=== PATIENT | male | born 1945 | race Caucasian/White ===

== ENCOUNTER 2017-01-03 23:02 | Inpatient (IN) | payer MEDICARE, OTHER ==
[2017-01-03] MEDS ORDERED: MORPHINE SULFATE 2 MG/ML SYRINGE IVP ONE (23:05)
[2017-01-03] MEDS ORDERED: KETOROLAC 60 MG/2 ML VIAL IVP STA (23:05)
[2017-01-03] MEDS ORDERED: ALBUTEROL NEBULIZED 2.5 MG/3 ML INHALATION STA (23:06)
[2017-01-03] MEDS ORDERED: IPRATROPIUM-ALBUTEROL 3 ML NEB INHALATION STA (23:06)
[2017-01-03 23:15] LABS: Glucose,Whole Blood 133 mg/dL (75-99)
--- NOTE | 2017-01-03 23:22 | ED ---
General Adult HPI - General Chief complaint: Upper Respiratory Infection Stated complaint: Hypoxia Time Seen by Provider: 01/03/17 23:05 Source: EMS, RN notes reviewed Mode of arrival: EMS Limitations: no limitations - History of Present Illness Initial comments: This is a 71-year-old male who comes to us from [facility] where they diagnosed him with an exacerbation of COPD and pneumonia patient had a CAT scan and lab work done at that facility and was sent to us because he needed BiPAP to keep him in the 90s. Patient states she feels considerably better than when he first came [facility]. Patient has received antibiotics and steroids and breathing treatments since coming to the hospital. Patient denies any recent fever or chills. Patient denies any chest pain. Patient denies any abdominal pain patient denies nausea vomiting diarrhea. Patient presented patient denies numbness weakness. Patient denies any lightheadedness dizziness or near syncopal episode. - Related Data Home Medications Medication Instructions Recorded Confirmed Albuterol Inhaler [Ventolin Hfa 1 - 2 puff INHALATION RT-QID PRN 01/03/17 Inhaler] Budesonide-Formot 160-4.5 Mcg 2 puff INHALATION RT-BID 01/03/17 01/03/17 [Symbicort 160-4.5 Mcg Inhaler] Gabapentin [Neurontin] 600 mg PO TID 01/03/17 01/03/17 Hydrocodone/Acetaminophen [[place] 1 tab PO TID PRN 01/03/17 01/03/17 10-325 Tablet] Insulin NPH Hum/Reg Insulin Hm 60 unit SQ AC-BID 01/03/17 01/03/17 [Humulin 70-30 Vial] Levofloxacin [Levaquin] 500 mg PO DAILY 01/03/17 01/03/17 Lisinopril [Zestril] 2.5 mg PO DAILY 01/03/17 01/03/17 Omeprazole [PriLOSEC] 20 mg PO DAILY PRN 01/03/17 01/03/17 Tiotropium 18 Mcg/Puff [Spiriva] 1 cap INHALATION RT-DAILY 01/03/17 01/03/17 Vits A,C,E/Lutein/Minerals 1 tab PO DAILY 01/03/17 01/03/17 [Ocuvite with Lutein Tablet] amLODIPine [Norvasc] 10 mg PO DAILY 01/03/17 01/03/17 Allergies Allergy/AdvReac Type Severity Reaction Status Date / Time No Known Allergies Allergy Verified 01/03/17 23:33 Review of Systems ROS Statement: Those systems with pertinent positive or pertinent negative responses have been documented in the HPI. ROS Other: All systems not noted in ROS Statement are negative. Past Medical History Past Medical History: COPD, Diabetes Mellitus, Hypertension, Sleep Apnea/CPAP/ BIPAP Additional Past Medical History / Comment(s): Pancrentitis History of Any Multi-Drug Resistant Organisms: None Reported Past Surgical History: Cholecystectomy Additional Past Surgical History / Comment(s): Trach Past Psychological History: No Psychological Hx Reported Smoking Status: Former smoker Past Alcohol Use History: Occasional Past Drug Use History: None Reported General Exam - General Exam Comments Initial Comments: GENERAL: Patient is well-developed and well-nourished. Patient is nontoxic and well- hydrated and is in no acute distress. ENT: Neck is soft and supple. No significant lymphadenopathy is noted. Oropharynx is clear. Moist mucous membranes. Neck has full range of motion without eliciting any pain. EYES: The sclera were anicteric and conjunctiva were pink and moist. Extraocular movements were intact and pupils were equal round and reactive to light. Eyelids were unremarkable. PULMONARY: Patient has diminished breath sounds throughout. CARDIOVASCULAR: There is a regular rate and rhythm without any murmurs gallops or rubs. ABDOMEN: Soft and nontender with normal bowel sounds. No palpable organomegaly was noted. There is no palpable pulsatile mass. SKIN: Skin is clear with no lesions or rashes and otherwise unremarkable. NEUROLOGIC: Patient is alert and oriented x3. Cranial nerves II through XII are grossly intact. Motor and sensory are also intact. Normal speech, volume and content. Symmetrical smile. MUSCULOSKELETAL: Normal extremities with adequate strength and full range of motion. No lower extremity swelling or edema. No calf tenderness. LYMPHATICS: No significant lymphadenopathy is noted PSYCHIATRIC: Normal psychiatric evaluation. Normal interpersonal interactions appears functionally intact in deals appropriately with others. No signs of depression. No signs of anxiety. Limitations: no limitations Course Vital Signs 01/03/17 01/03/17 01/03/17 23:04 23:17 23:32 Temperature 98.6 F Pulse Rate 86 74 84 Respiratory 22 Rate Blood Pressure 141/76 O2 Sat by Pulse 94 L Oximetry Medical Decision Making - Medical Decision Making EKG shows normal sinus rhythm at 86 bpm VT interval is 134 QRS is 86 QT interval 392 QTC is 469. Patient's EKG shows no ST segment elevation or depression I reviewed the chest CT and x-ray it did show a lingular pneumonia which is very small. I spoke with Dr. Be and admitted the patient and wrote admitting orders. - Lab Data Lab Results 01/03/17 Range/Units 23:12 POC Glucose (mg/dL) 133 H (75-99) mg/dL POC Glu Director Case Management ID Ignacia Dasilva Disposition Clinical Impression: COPD with acute exacerbation, Pneumonia Disposition: ADMITTED IP TO THIS HOSP Referrals: Nonstaff,Physician [Primary Care Provider] - 1-2 days Time of Disposition: 00:00
[2017-01-04] MEDS ORDERED: AZITHROMYCIN 500 MG in SODIUM CHLORIDE 0.9% 250 ML IVPB STA (00:02)
[2017-01-04 00:40] LABS: Glucose,Whole Blood 160 mg/dL (75-99)
[2017-01-04 00:57] VITALS: BMI 43.9
[2017-01-04] MEDS: methylPREDNISolone SOD SUCCI 125 MG/2 ML VIAL IV SCH ×4 (01:18→18:16)
[2017-01-04 06:11] LABS: Glucose,Whole Blood 191 mg/dL (75-99)
[2017-01-04] MEDS ORDERED: PANTOPRAZOLE 40 MG TABLET PO PRN (09:26)
[2017-01-04] MEDS: HYDROcodone/APAP 10-325MG 1 EACH TAB PO PRN ×2 (10:04→20:14)
[2017-01-04] MEDS: GABAPENTIN 300 MG CAP PO SCH ×3 (10:06→22:09)
[2017-01-04] MEDS: LISINOPRIL 2.5 MG TAB PO SCH (10:06)
[2017-01-04] MEDS: amLODIPine 10 MG TAB PO SCH (10:06)
[2017-01-04] MEDS: HYDROmorphone 1 MG/ML 1 ML SYRINGE IVP PRN ×2 (10:10→16:39)
[2017-01-04 10:35] LABS: Glucose,Whole Blood 281 mg/dL (75-99)
[2017-01-04] MEDS: INSULIN LISPRO (humaLOG) 300 UNIT/3 ML VIAL SQ SCH ×4 (11:03→22:07)
[2017-01-04] MEDS: INSULIN NPH/REG INSULIN 70/30 300 UNIT/3 ML VIAL SQ SCH ×2 (11:04→18:17)
[2017-01-04 11:42] LABS: Hemoglobin A1C 6.6 % (4.2-6.1)
[2017-01-04 11:43] LABS: Glucose,Whole Blood 219 mg/dL (75-99)
[2017-01-04] MEDS: ALBUTEROL NEBULIZED 2.5 MG/3 ML INHALATION PRN ×2 (11:45→19:43)
[2017-01-04] MEDS: ENOXAPARIN 40 MG/0.4 ML SYRINGE SQ SCH (13:03)
--- NOTE | 2017-01-04 13:33 | P.CNPUL ---
History of Present Illness Consult date: 01/04/17 Reason for consult: dyspnea, COPD History of present illness: This is a 71-year-old male patient, morbidly obese, known history of COPD and obstructive sleep apnea, who presented initially to [facility] because of increased cough. He started by having cold-like symptoms and symptoms of URI approximately 7-10 days ago and subsequently started having increased cough and congestion and he was coughing so hard that yesterday he pulled a anterior chest wall muscle and says that his been having excess amount of pain around the right lateral chest wall area. He denies having any fever or chills. He denies having any significant sputum production. No hemoptysis. No pleurisy. The chest wall was sore to touch and cough and. The patient is an ex-smoker. He quit smoking back in 2009. He is maintained on a combination of Spiriva and Symbicort. The patient has also been maintained on BiPAP at a pressure of 18/10 cm of water utilizing a full face mask. He is feeling slightly better compared to yesterday. He still short of breath with limited amount of activity and occasionally at rest. His blood gases that were forwarded from [facility] showed a component of hypercapnic respiratory failure acute on top of chronic with a pH of 7.34 with a pCO2 of 53 and pO2 of 71 and this was done while the patient on 43 of oxygen nasal cannula. Also, CT angios the chest was done that showed no evidence of any pulmonary embolism. There was some limited infiltration at the level of the lingula. No pleural effusion. Noted fracture. No pneumothorax. Blood work was also reviewed. The patient's creatinine was at 1.4. Review of Systems All systems: negative Constitutional: Denies chills, Denies fever Eyes: denies blurred vision, denies pain Ears, nose, mouth and throat: Denies headache, Denies sore throat Cardiovascular: Denies chest pain, Denies shortness of breath Respiratory: Denies cough Gastrointestinal: Denies abdominal pain, Denies diarrhea, Denies nausea, Denies vomiting Musculoskeletal: Denies myalgias Integumentary: Denies pruritus, Denies rash Neurological: Denies numbness, Denies weakness Psychiatric: Denies anxiety, Denies depression Endocrine: Denies fatigue, Denies weight change Past Medical History Past Medical History: COPD, Diabetes Mellitus, Hypertension, Renal Disease, Sleep Apnea/CPAP/BIPAP Additional Past Medical History / Comment(s): Obesity, DM type 2 , HTN, periferal neuropathy, chronic back pain and history of gallstone Pancreatitis that was complicated by sep[sis and prolonged VDRF and renal failure from which the patient recovered History of Any Multi-Drug Resistant Organisms: None Reported Past Surgical History: Cholecystectomy Additional Past Surgical History / Comment(s): Tracheostomy Past Anesthesia/Blood Transfusion Reactions: No Reported Reaction Past Psychological History: Depression Smoking Status: Former smoker (quit smoking in 2009 and he has 50pyear smoking history) Past Alcohol Use History: Occasional Past Drug Use History: None Reported - Past Family History Father Family Medical History: Cancer Additional Family Medical History / Comment(s): lung cancer Mother Family Medical History: No Reported History Medications and Allergies Home Medications Medication Instructions Recorded Confirmed Type Albuterol Inhaler [Ventolin Hfa 1 - 2 puff INHALATION RT-QID PRN 01/03/17 History Inhaler] Budesonide-Formot 160-4.5 Mcg 2 puff INHALATION RT-BID 01/03/17 01/03/17 History [Symbicort 160-4.5 Mcg Inhaler] Gabapentin [Neurontin] 600 mg PO TID 01/03/17 01/03/17 History Hydrocodone/Acetaminophen [[place] 1 tab PO TID PRN 01/03/17 01/03/17 History 10-325 Tablet] Insulin NPH Hum/Reg Insulin Hm 60 unit SQ AC-BID 01/03/17 01/03/17 History [Humulin 70-30 Vial] Lisinopril [Zestril] 2.5 mg PO DAILY 01/03/17 01/03/17 History Omeprazole [PriLOSEC] 20 mg PO DAILY PRN 01/03/17 01/03/17 History Tiotropium 18 Mcg/Puff [Spiriva] 1 cap INHALATION RT-DAILY 01/03/17 01/03/17 History Vits A,C,E/Lutein/Minerals 1 tab PO DAILY 01/03/17 01/03/17 History [Ocuvite with Lutein Tablet] amLODIPine [Norvasc] 10 mg PO DAILY 01/03/17 01/03/17 History Allergies Allergy/AdvReac Type Severity Reaction Status Date / Time No Known Allergies Allergy Verified 01/03/17 23:33 Physical Exam Vitals: Vital Signs Temp Pulse Pulse Resp BP BP Pulse Ox 01/04/17 11:46 80 01/04/17 08:50 97.2 F L 78 18 124/63 91 L 01/04/17 04:00 97.8 F 92 18 135/79 92 L 01/04/17 00:47 97.9 F 88 18 135/72 95 01/04/17 00:28 98.4 F 01/04/17 00:25 97.9 F 88 18 135/72 95 01/04/17 00:04 83 24 164/107 93 L 01/03/17 23:32 84 01/03/17 23:17 74 01/03/17 23:04 98.6 F 86 22 141/76 94 L Intake and Output 01/03/17 01/04/17 01/04/17 22:59 06:59 14:59 Intake Total 240 Output Total 350 Balance -350 240 Intake: Oral 240 Output: Urine 350 Other: # Voids 1 Weight 138.8 kg Morbidly obese, calm and comfortable a mild degree of respiratory distress.Head exam was generally normal. There was no scleral icterus or corneal arcus. Mucous membranes were moist. Neck is short and supple and there is significant crowding of the posterior pharynx and the patient has a Mallampati class IV. Lung sounds are diminished bilaterally along with marked image breath sounds in the lung bases and diffuse expiratory wheezes throughout the lung quiles. Heart sounds are distant, positive S1-S2. No significant murmurs appreciated. Abdominal exam revealed normal bowel sounds. The abdomen was soft, non-tender, and without masses, organomegaly, or appreciable enlargement of the abdominal aorta. the patient is morbidly obese and orders cannot be accurately palpated.Examination of the extremities revealed easily palpable radial, femoral and pedal pulses. There was no cyanosis, clubbing or edema. Results - Laboratory Findings Abnormal lab findings: Abnormal Labs 01/03/17 01/04/17 01/04/17 23:12 00:38 05:31 POC Glucose (mg/dL) 133 H 160 H Hemoglobin A1c 6.6 H 01/04/17 01/04/17 01/04/17 06:10 10:33 11:41 POC Glucose (mg/dL) 191 H 281 H 219 H Hemoglobin A1c Assessment and Plan Plan: Assessment 1 acute COPD exacerbation with secondary shortness of breath 2 acute muscular skeletal chest wall pain secondary to aggressive cough and. CAT scan of the chest shows evidence of any rib fractures or pulmonary embolism. 3 chronic hypercapnic respiratory failure with acute respiratory acidosis based on the blood gases 4 morbid obesity 5 obstructive sleep apnea maintained on a BiPAP pressure of 18/10 cm of water 6 hypertension 7 diabetes mellitus 8 renal failure, chronic creatinine is at 1.4 9 remote history of gallstone pancreatitis complicated by sepsis and prolonged ventilator dependent respiratory failure. Plan Agree on the current treatment. The patient has been placed on DuoNeb the last treatment [id number]. Resume Symbicort and Spiriva. Cover the patient with a combination of Rocephin and Zithromax. Provide Dilaudid for pain control. CAT scan of the chest was reviewed. Heparin subcu for DVT prophylaxis. Continue BiPAP therapy. We'll continue to follow.
[2017-01-04] MEDS: IPRATROPIUM-ALBUTEROL 3 ML NEB INHALATION PRN (16:28)
[2017-01-04 16:39] LABS: Glucose,Whole Blood 146 mg/dL (75-99)
[2017-01-04] MEDS: CYCLOBENZAPRINE 10 MG TAB PO PRN (16:45)
[2017-01-04] MEDS: SYMBICORT 160-4.5 MCG INHALER INHALATION SCH (19:43)
[2017-01-04 20:55] LABS: Glucose,Whole Blood 274 mg/dL (75-99)
[2017-01-04 22:16] LABS: Glucose,Whole Blood 265 mg/dL (75-99)
--- NOTE | 2017-01-04 22:42 | HP ---
DATE OF ADMISSION: 01/04/2017 CHIEF COMPLAINT: Patient transferred from [facility] for difficulty in breathing. HISTORY OF PRESENT ILLNESS: Mr. Altamirano is a 71-year-old male with a past medical history of chronic obstructive pulmonary disease, obstructive sleep apnea, morbid obesity who was transferred from [facility] ER for difficulty in breathing. The patient states that he started to have upper respiratory tract symptoms for the past one week and he has been coughing and it got so worse that when he started to cough he thought he pulled a muscle in his chest wall and since then it has been hurting whenever he takes a deep breath so went to the hospital for further evaluation. The patient did get a CT angiogram of the chest, which showed no evidence of PE. Patient is an ex-smoker and quit smoking since 2009. He has obstructive sleep apnea and he is on CPAP at night. As there was impending danger of respiratory failure, he has been transferred to for further evaluation. The patient has been on high flow oxygen and his ABGs are within normal limits at the time of admission to the ER. He was given breathing treatments and steroids after which his respiration status did improve. Currently the patient is sitting comfortably in the bed on 4 liters of oxygen via nasal cannula, appears to be no acute respiratory distress. His only complaint is that he has pain when taking in a deep breath on the right side of his chest under his ribs. REVIEW OF SYSTEMS: CONSTITUTIONAL: Denies having any fever, chills or rigors. ENT: Patient had upper tract symptoms with cold and cough-like nasal drainage. CARDIOVASCULAR: No chest pain. No difficulty in breathing. RESPIRATORY: As per HPI. GI: No abdominal pain, nausea, vomiting, or diarrhea. MUSCULOSKELETAL: No myalgias. SKIN: No rash. NEUROLOGICAL: The patient denies having any headaches or blurring of her vision or slurring of speech. PSYCHIATRIC: Denies having any anxiety or depression. ENDOCRINE: No heat or cold intolerance or weight changes recently. Past medical history significant for hypertension, diabetes mellitus, sleep apnea, COPD, morbid obesity. The patient had a complicated in the hospital stay in 2009 four almost 2 months for gallstone pancreatitis that was complicated by sepsis. PAST SURGICAL HISTORY: Cholecystectomy and tracheostomy. SOCIAL HISTORY: Former smoker, quit in 2009/50 pack-years of smoking. Occasional alcohol. No history of intravenous drug abuse. FAMILY HISTORY: Positive for lung cancer in his father. Allergies: No known drug allergies. Patient's home medications: 1. Albuterol 1 to 2 puffs p.r.n. for shortness of breath. 2. Amlodipine 10 mg p.o. daily. 3. Spiriva 1 capsule p.o. daily. 4. Lisinopril 2.5 mg p.o. daily. 5. Gabapentin 600 mg p.o. 3 times a day. 6. Insulin 70/30 60 units twice a day. 7. Symbicort 160/4.5, 2 puffs b.i.d. 8. [place] 10/325 1 tablet 3 times a day p.r.n. for pain. 9. Omeprazole 25 mg p.o. daily p.r.n. for GERD like symptoms. 10. Multivitamin 1 p.o. daily. At the time of exam patient's vitals: Temperature 97.6, heart rate 78, respiratory rate 18, blood pressure 124/63, saturating at 91% on 6 liters of nasal cannula. GENERAL EXAMINATION: Patient is morbidly obese, sitting up in his bed, appears to be no acute distress. HEAD: Atraumatic, normocephalic. EYES: Pupils, round, and reactive to light. NECK: Short. HEART: S1, S2 heard. No additional sounds. LUNGS: Decreased breath sounds in all lung quiles. No audible wheezes or crackles. ABDOMEN: Soft, nontender. Organomegaly difficult to appreciate due to huge body habitus. Lower extremities slight pitting edema bilaterally, pulses felt. MUSCULOSKELETAL: No joint swellings or deformities. SKIN: No rashes. Patient does have ( ) on the forehead in the midline. 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 No focal neurological deficits. Patient's labs: Hemoglobin A1c of 6.6. Labs from [facility] will be reviewed. The patient did have CT Angio of his chest which was negative for PE at [facility]. ASSESSMENT AND PLAN: 1. Acute chronic obstructive pulmonary disease exacerbation most likely secondary to tracheobronchitis. The patient has been started on ceftriaxone and Zithromax which will be continued. 2. Chest wall pain, most likely musculoskeletal in origin. We will give a trial of Flexeril. CT angiogram no evidence of rib fractures or pulmonary embolism. 3. Acute on chronic hypercapnic respiratory failure. 4. Morbid obesity. 5. Hypertension. 6. Type 2 diabetes mellitus. 7. Morbid obesity with BMI of 43.9. 8. Hypertension. 9. Elevated creatinine unclear whether is acute or chronic kidney injury. 10. Wart on the forehead. 11. Complicated hospital course in 2009 with gallstone pancreatitis that was complicated by VDRF and prolonged recovery after that. PLAN: Plan is to continue the patient on antibiotics in the form of ceftriaxone, Zithromax, continue breathing treatments and IV steroids and we will give Flexeril for his right chest wall pain. Further recommendations to follow depending on the progress of the patient.
[2017-01-05] MEDS: methylPREDNISolone SOD SUCCI 125 MG/2 ML VIAL IV SCH ×4 (00:10→18:08)
[2017-01-05 02:15] LABS: Glucose,Whole Blood 183 mg/dL (75-99)
[2017-01-05] MEDS: HYDROmorphone 1 MG/ML 1 ML SYRINGE IVP PRN ×3 (03:42→19:00)
[2017-01-05 06:17] LABS: Glucose,Whole Blood 176 mg/dL (75-99)
[2017-01-05 06:32] LABS: Basophils % (A) 0 %; CH 30.3; Eosinophils # (A) 0.1 k/uL (0-0.7); Eosinophils % (A) 0 %; HCT 42.7 % (39.0-53.0); HDW 2.97; Hypochromasia Slight; Luc # (Auto) 0.16; Luc % (Auto) 1; Lymphocytes # (A) 0.8 k/uL (1.0-4.8); Lymphocytes % (A) 6 %; MCH 31.1 pg (25.0-35.0); MCHC 32.7 g/dL (31.0-37.0); MCV 95.2 fL (80.0-100.0); Mean Platelet Volume 6.7; Monocytes # (A) 0.5 k/uL (0-1.0); Monocytes % (A) 3 %; Neutrophils # (A) 13.1 k/uL (1.3-7.7); Neutrophils % (A) 90 %; RBC 4.49 m/uL (4.30-5.90); RDW 14.4 % (11.5-15.5); WBC 14.6 k/uL (3.8-10.6); WBC (Perox) 15.33
[2017-01-05 06:45] LABS: Anion Gap 6 mmol/L; Blood Urea Nitrogen 47 mg/dL (9-20); Calcium 8.9 mg/dL (8.4-10.2); Carbon Dioxide 29 mmol/L (22-30); Chloride 102 mmol/L (98-107); Glucose 172 mg/dL (74-99); Non-African American GFR(MDRD) 50 (>60 ml/min/1.73 sqM); Sodium 137 mmol/L (137-145)
[2017-01-05] MEDS: INSULIN LISPRO (humaLOG) 300 UNIT/3 ML VIAL SQ SCH ×4 (06:56→22:02)
[2017-01-05 07:01] LABS: Potassium 6.5 mmol/L (3.5-5.1)
[2017-01-05] MEDS: INSULIN NPH/REG INSULIN 70/30 300 UNIT/3 ML VIAL SQ SCH ×3 (07:02→17:03)
[2017-01-05] MEDS: IPRATROPIUM-ALBUTEROL 3 ML NEB INHALATION PRN ×3 (07:29→20:31)
[2017-01-05] MEDS: SYMBICORT 160-4.5 MCG INHALER INHALATION SCH ×2 (07:33→20:31)
[2017-01-05] MEDS: TIOTROPIUM 18 MCG/PUFF INHALER INHALATION SCH (07:33)
[2017-01-05] MEDS: GABAPENTIN 300 MG CAP PO SCH ×3 (08:10→20:52)
[2017-01-05] MEDS: ENOXAPARIN 40 MG/0.4 ML SYRINGE SQ SCH (08:10)
[2017-01-05] MEDS: amLODIPine 10 MG TAB PO SCH (08:10)
[2017-01-05] MEDS: LISINOPRIL 2.5 MG TAB PO SCH (10:49)
[2017-01-05] MEDS: ALBUTEROL NEBULIZED 2.5 MG/3 ML INHALATION PRN (10:59)
[2017-01-05 11:40] LABS: Glucose,Whole Blood 305 mg/dL (75-99)
[2017-01-05 11:48] LABS: Anion Gap 6 mmol/L; Blood Urea Nitrogen 49 mg/dL (9-20); Calcium 8.5 mg/dL (8.4-10.2); Carbon Dioxide 27 mmol/L (22-30); Chloride 102 mmol/L (98-107); Glucose 340 mg/dL (74-99); Non-African American GFR(MDRD) 51 (>60 ml/min/1.73 sqM); Potassium 5.8 mmol/L (3.5-5.1); Sodium 135 mmol/L (137-145)
--- NOTE | 2017-01-05 11:53 | P.PN ---
Subjective This is a 71-year-old male patient, morbidly obese, known history of COPD and obstructive sleep apnea, who presented initially to [facility] because of increased cough. He started by having cold-like symptoms and symptoms of URI approximately 7-10 days ago and subsequently started having increased cough and congestion and he was coughing so hard that yesterday he pulled a anterior chest wall muscle and says that his been having excess amount of pain around the right lateral chest wall area. He denies having any fever or chills. He denies having any significant sputum production. No hemoptysis. No pleurisy. The chest wall was sore to touch and cough and. The patient is an ex-smoker. He quit smoking back in 2009. He is maintained on a combination of Spiriva and Symbicort. The patient has also been maintained on BiPAP at a pressure of 18/10 cm of water utilizing a full face mask. He is feeling slightly better compared to yesterday. He still short of breath with limited amount of activity and occasionally at rest. His blood gases that were forwarded from [facility] showed a component of hypercapnic respiratory failure acute on top of chronic with a pH of 7.34 with a pCO2 of 53 and pO2 of 71 and this was done while the patient on 43 of oxygen nasal cannula. Also, CT angios the chest was done that showed no evidence of any pulmonary embolism. There was some limited infiltration at the level of the lingula. No pleural effusion. Noted fracture. No pneumothorax. Blood work was also reviewed. The patient's creatinine was at 1.4. On 01/05/2017 the patient is being seen in follow-up. The patient is still is having some right-sided chest pain especially with coughing. His less shortness of breath. His cough is subsided. His also less bronchospastic and wheezy on today's evaluation. Potassium level is high at 6.5 and this is to be evaluated. Renal function is stable with a creatinine of 1.7. Meanwhile, the patient remains on a combination of Rocephin and Zithromax. He is on IV Solu- Medrol. He is also on DuoNeb nebulized treatments around the clock. Utilizing BiPAP overnight. Objective - Vital Signs Vital signs: Vital Signs Temp 97.3 F L 01/05/17 07:55 Pulse 72 01/05/17 11:12 Resp 18 06/11/17 07:55 BP 120/60 01/05/17 07:55 Pulse Ox 90 L 01/05/17 07:55 Intake & Output 01/04/17 01/05/17 01/05/17 18:59 06:59 18:59 Intake Total 720 240 Output Total 425 650 550 Balance 295 -650 -310 Weight 141.1 kg Intake: Oral 720 240 Output: Urine 425 650 550 Other: Voiding Method Urinal # Voids 1 - Exam Morbidly obese, calm and comfortable a mild degree of respiratory distress.Head exam was generally normal. There was no scleral icterus or corneal arcus. Mucous membranes were moist. Neck is short and supple and there is significant crowding of the posterior pharynx and the patient has a Mallampati class IV. Lung sounds are diminished bilaterally along with marked image breath sounds in the lung bases and diffuse expiratory wheezes throughout the lung quiles. Heart sounds are distant, positive S1-S2. No significant murmurs appreciated. Abdominal exam revealed normal bowel sounds. The abdomen was soft, non-tender, and without masses, organomegaly, or appreciable enlargement of the abdominal aorta. the patient is morbidly obese and orders cannot be accurately palpated.Examination of the extremities revealed easily palpable radial, femoral and pedal pulses. There was no cyanosis, clubbing or edema. - Labs CBC & Chem 7: 01/05/17 06:09 01/05/17 06:09 Labs: Abnormal Lab Results - Last 24 Hours (Table) 01/04/17 01/04/17 01/04/17 Range/Units 05:31 16:37 20:54 WBC (3.8-10.6) k/uL Neutrophils # (1.3-7.7) k/uL Lymphocytes # (1.0-4.8) k/uL Potassium (3.5-5.1) mmol/L BUN (9-20) mg/dL Creatinine (0.66-1.25) mg/dL Glucose (74-99) mg/dL POC Glucose (mg/dL) 146 H 274 H (75-99) mg/dL Hemoglobin A1c 6.6 H (4.2-6.1) % 01/04/17 01/05/17 01/05/17 Range/Units 21:56 02:13 06:09 WBC 14.6 H (3.8-10.6) k/uL Neutrophils # 13.1 H (1.3-7.7) k/uL Lymphocytes # 0.8 L (1.0-4.8) k/uL Potassium (3.5-5.1) mmol/L BUN (9-20) mg/dL Creatinine (0.66-1.25) mg/dL Glucose (74-99) mg/dL POC Glucose (mg/dL) 265 H 183 H (75-99) mg/dL Hemoglobin A1c (4.2-6.1) % 01/05/17 01/05/17 01/05/17 Range/Units 06:09 06:16 11:38 WBC (3.8-10.6) k/uL Neutrophils # (1.3-7.7) k/uL Lymphocytes # (1.0-4.8) k/uL Potassium 6.5 H* (3.5-5.1) mmol/L BUN 47 H (9-20) mg/dL Creatinine 1.40 H (0.66-1.25) mg/dL Glucose 172 H (74-99) mg/dL POC Glucose (mg/dL) 176 H 305 H (75-99) mg/dL Hemoglobin A1c (4.2-6.1) % Assessment and Plan Plan: Assessment 1 acute COPD exacerbation with secondary shortness of breath 2 acute muscular skeletal chest wall pain secondary to aggressive cough and. CAT scan of the chest shows evidence of any rib fractures or pulmonary embolism. 3 chronic hypercapnic respiratory failure with acute respiratory acidosis based on the blood gases 4 morbid obesity 5 obstructive sleep apnea maintained on a BiPAP pressure of 18/10 cm of water 6 hypertension 7 diabetes mellitus 8 renal failure, chronic creatinine is at 1.4 9 remote history of gallstone pancreatitis complicated by sepsis and prolonged ventilator dependent respiratory failure. Plan We will repeat the potassium level and treat with Kayexalate if the potassium level is above 6. Continue same treatment. Clinically improving. Chest wall pain is subsided. We'll follow. Encourage utilizing BiPAP overnight.
[2017-01-05] MEDS: AZITHROMYCIN 500 MG in SODIUM CHLORIDE 0.9% 250 ML IVPB SCH (12:35)
[2017-01-05] MEDS: VIT A,C & E-LUTEIN-MINERALS 1 EACH TAB PO SCH (12:36)
[2017-01-05] MEDS: HYDROcodone/APAP 10-325MG 1 EACH TAB PO PRN (12:52)
[2017-01-05 16:45] LABS: Glucose,Whole Blood 145 mg/dL (75-99)
[2017-01-05] MEDS: CYCLOBENZAPRINE 10 MG TAB PO PRN (18:08)
[2017-01-05 21:32] LABS: Glucose,Whole Blood 127 mg/dL (75-99)
[2017-01-06] MEDS: CYCLOBENZAPRINE 10 MG TAB PO PRN ×2 (01:16→20:47)
[2017-01-06] MEDS: HYDROmorphone 1 MG/ML 1 ML SYRINGE IVP PRN ×2 (01:19→06:54)
[2017-01-06] MEDS: methylPREDNISolone SOD SUCCI 125 MG/2 ML VIAL IV SCH ×5 (01:19→22:51)
[2017-01-06 01:21] LABS: Glucose,Whole Blood 124 mg/dL (75-99)
[2017-01-06] MEDS: HYDROcodone/APAP 10-325MG 1 EACH TAB PO PRN ×3 (04:35→20:47)
[2017-01-06 06:15] LABS: Glucose,Whole Blood 180 mg/dL (75-99)
[2017-01-06] MEDS: INSULIN LISPRO (humaLOG) 300 UNIT/3 ML VIAL SQ SCH ×4 (06:59→20:48)
[2017-01-06] MEDS: INSULIN NPH/REG INSULIN 70/30 300 UNIT/3 ML VIAL SQ SCH ×2 (07:27→17:49)
[2017-01-06 07:30] LABS: Anion Gap 6 mmol/L; Blood Urea Nitrogen 54 mg/dL (9-20); Calcium 8.5 mg/dL (8.4-10.2); Carbon Dioxide 27 mmol/L (22-30); Chloride 103 mmol/L (98-107); Glucose 179 mg/dL (74-99); Non-African American GFR(MDRD) 51 (>60 ml/min/1.73 sqM); Sodium 136 mmol/L (137-145)
[2017-01-06 07:40] LABS: Potassium 6.5 mmol/L (3.5-5.1)
[2017-01-06 07:44] LABS: Basophils % (A) 0 %; CH 30.5; CHCM 30.6; Eosinophils % (A) 0 %; HCT 44.2 % (39.0-53.0); HDW 2.65; HGB 13.6 gm/dL (13.0-17.5); Hypochromasia Moderate; Luc # (Auto) 0.09; Luc % (Auto) 1; Lymphocytes # (A) 0.6 k/uL (1.0-4.8); Lymphocytes % (A) 5 %; MCH 30.8 pg (25.0-35.0); MCHC 30.7 g/dL (31.0-37.0); Macrocytosis Slight; Mean Platelet Volume 7.3; Monocytes # (A) 0.4 k/uL (0-1.0); Monocytes % (A) 3 %; Neutrophils # (A) 12.3 k/uL (1.3-7.7); Neutrophils % (A) 92 %; RBC 4.41 m/uL (4.30-5.90); RDW 14.5 % (11.5-15.5); WBC 13.4 k/uL (3.8-10.6)
[2017-01-06 07:47] LABS: MCV 100.2 fL (80.0-100.0)
[2017-01-06] MEDS: amLODIPine 10 MG TAB PO SCH (08:32)
[2017-01-06] MEDS: GABAPENTIN 300 MG CAP PO SCH ×3 (08:33→20:47)
[2017-01-06] MEDS: ENOXAPARIN 40 MG/0.4 ML SYRINGE SQ SCH (08:33)
[2017-01-06] MEDS: VIT A,C & E-LUTEIN-MINERALS 1 EACH TAB PO SCH (08:34)
[2017-01-06] MEDS: SYMBICORT 160-4.5 MCG INHALER INHALATION SCH ×2 (08:48→20:28)
[2017-01-06] MEDS: TIOTROPIUM 18 MCG/PUFF INHALER INHALATION SCH (08:48)
[2017-01-06] MEDS: IPRATROPIUM-ALBUTEROL 3 ML NEB INHALATION PRN ×2 (08:48→13:43)
[2017-01-06] MEDS ORDERED: SODIUM POLYSTYRENE SULFONATE 15 GM/60 ML BOTTLE PO ONE (10:15)
--- NOTE | 2017-01-06 10:20 | PN ---
DATE OF SERVICE: 01/05/2017 INTERVAL HISTORY: Mr. Altamirano is a 71-year-old male with past medical history of chronic obstructive pulmonary disease, CHARLENE, morbid obesity transferred from [facility] for difficulty in breathing. Patient had a CT angiogram of the chest that was negative for any PE or any rib fractures. The patient continues to have right-sided chest pain below the rib cage which is most likely musculoskeletal in nature. Patient has been started on Flexeril. Patient does not have any active complaints today. REVIEW OF SYSTEMS: CONSTITUTIONAL: Denies having fever, chills or rigors. RESPIRATORY: His difficulty in breathing has been better, but he is afraid to cough due to the pain that he has on the right side of the chest below his ribs. CARDIAC: No chest pain or palpitations. GI: No abdominal pain, nausea, vomiting, or diarrhea. : No dysuria, hematuria. Patient's medications have been reviewed. On examination, patient's vital signs temperature 97.8, heart rate 90, respiratory rate 22, blood pressure 100/61, saturating at 90% on 6 liters of nasal cannula. GENERAL EXAMINATION: Patient is morbidly obese, lying in bed. HEAD: The patient has a wart in the forehead region in the mid midline. EYES: Pupils, round and reactive to light and conjunctivae pink. NECK: Short. HEART: S1, S2 heard. No additional sounds. LUNGS: Good breath sounds in all lung quiles. No audible wheezes or crackles. ABDOMEN: Soft, nontender. Organomegaly difficult to appreciate due to huge body habitus. EXTREMITIES: Positive for slight pitting edema bilaterally, pulses felt. MUSCULOSKELETAL: No joint swelling or deformity. SKIN: No rash. SENIOR WEB ENGINEER: Alert, awake, oriented x3. No focal neurological deficits. Patient's labs: White count of 14.6, hemoglobin is 14, platelets of 200, sodium is 135, potassium 5.8, chloride 102, bicarb 27, BUN 49, creatinine 1.37. ASSESSMENT AND PLAN: 1. Acute chronic obstructive pulmonary disease exacerbation it, most likely secondary to acute tracheobronchitis. The patient has been started on ceftriaxone and Zithromax which will be continued. 2. Right-sided chest wall pain secondary to musculoskeletal spasms. Patient to be continued on Flexeril and pain medications. CT Angio with no evidence of rib fractures or pulmonary embolism. 3. Acute on chronic hypercapnic respiratory failure. 4. Morbid obesity with body mass index of 43.9. 5. Hypertension. 6. Type 2 diabetes mellitus. 7. Elevated creatinine, unclear if it is acute or chronic. 8. Wart on the forehead. 9. Complicated hospital course in 2009 with gallstone pancreatitis that was complicated by VDRF and prolonged ( ) after that. PLAN: Plan is to continue the patient on ceftriaxone, Zithromax, breathing treatments and Solu-Medrol. The patient is still saturating around 90 on 3 liters of oxygen, so will need home oxygen evaluation at the time of discharge. Further recommendations to follow depending on the progress of the patient.
[2017-01-06] MEDS: AZITHROMYCIN 500 MG in SODIUM CHLORIDE 0.9% 250 ML IVPB SCH (10:43)
--- NOTE | 2017-01-06 11:56 | P.PN ---
Subjective Principal diagnosis: Right-sided chest pain, musculoskeletal, and acute COPD exacerbation. This is a 71-year-old male patient, morbidly obese, known history of COPD and obstructive sleep apnea, who presented initially to [facility] because of increased cough. He started by having cold-like symptoms and symptoms of URI approximately 7-10 days ago and subsequently started having increased cough and congestion and he was coughing so hard that yesterday he pulled a anterior chest wall muscle and says that his been having excess amount of pain around the right lateral chest wall area. He denies having any fever or chills. He denies having any significant sputum production. No hemoptysis. No pleurisy. The chest wall was sore to touch and cough and. The patient is an ex-smoker. He quit smoking back in 2009. He is maintained on a combination of Spiriva and Symbicort. The patient has also been maintained on BiPAP at a pressure of 18/10 cm of water utilizing a full face mask. He is feeling slightly better compared to yesterday. He still short of breath with limited amount of activity and occasionally at rest. His blood gases that were forwarded from [facility] showed a component of hypercapnic respiratory failure acute on top of chronic with a pH of 7.34 with a pCO2 of 53 and pO2 of 71 and this was done while the patient on 43 of oxygen nasal cannula. Also, CT angios the chest was done that showed no evidence of any pulmonary embolism. There was some limited infiltration at the level of the lingula. No pleural effusion. Noted fracture. No pneumothorax. Blood work was also reviewed. The patient's creatinine was at 1.4. On 01/05/2017 the patient is being seen in follow-up. The patient is still is having some right-sided chest pain especially with coughing. His less shortness of breath. His cough is subsided. His also less bronchospastic and wheezy on today's evaluation. Potassium level is high at 6.5 and this is to be evaluated. Renal function is stable with a creatinine of 1.7. Meanwhile, the patient remains on a combination of Rocephin and Zithromax. He is on IV Solu- Medrol. He is also on DuoNeb nebulized treatments around the clock. Utilizing BiPAP overnight. Patient was reevaluated today on 01/06/2017, continues to have right sided musculoskeletal pain with certain movements and with deep coughing. Patient has chronic shortness of breath secondary to COPD, his cough seems to be less and less, patient is less bronchospastic and wheezy today. Labs are abnormal continues to have hyperkalemia, potassium is 6.5, his renal profile seems to be worsening, and I believe the patient should have a nephrology evaluation. CT of the chest was reviewed by Dr. Mcleod upon admission and there was no evidence of thromboembolic disease, and no evidence of rib fractures. He did recommend antibiotics for possible lingular infiltrate. Objective - Vital Signs Vital signs: Vital Signs Temp 97.3 F L 01/06/17 08:00 Pulse 102 H 01/06/17 10:49 Resp 20 01/06/17 10:49 BP 131/62 01/06/17 10:49 Pulse Ox 90 L 01/06/17 10:49 Intake & Output 01/05/17 01/06/17 01/06/17 18:59 06:59 18:59 Intake Total 720 900 180 Output Total 700 1000 Balance 20 -100 180 Weight 140.2 kg Intake: IV 600 0.9 600 Oral 720 300 180 Output: Urine 700 1000 Other: Voiding Method Urinal Urinal # Voids 1 1 # Bowel Movements 0 - Exam Physical Exam: Revealed a 71-year-old white male, obese, cushingoid looking, in no distress, he is on oxygen at 5 L nasal cannula. HEENT:[Neck is supple.] [No neck masses.] [No thyromegaly.] [No JVD.]. Narrow oropharynx was noted. Chest: [Diminished breath sound bilaterally, no crackles or rhonchi or wheezes, no tenderness was elicited over the area of the chest pain just above the right hemidiaphragm.] Cardiac Exam: [Normal S1 and S2, no S3 gallop, no murmur.] Abdomen: [Obese, Soft, nontender, no megaly, no rebound, no guarding, normal bowel sounds.] Extremities: [No clubbing, no edema, no cyanosis.] Neurological Exam: [No focal neurologic deficit.] - Labs CBC & Chem 7: 01/06/17 05:55 01/06/17 05:55 Labs: Abnormal Lab Results - Last 24 Hours (Table) 01/05/17 01/05/17 01/05/17 Range/Units 11:05 16:44 21:07 WBC (3.8-10.6) k/uL MCV (80.0-100.0) fL MCHC (31.0-37.0) g/dL Neutrophils # (1.3-7.7) k/uL Lymphocytes # (1.0-4.8) k/uL Sodium 135 L (137-145) mmol/L Potassium 5.8 H (3.5-5.1) mmol/L BUN 49 H (9-20) mg/dL Creatinine 1.37 H (0.66-1.25) mg/dL Glucose 340 H (74-99) mg/dL POC Glucose (mg/dL) 145 H 127 H (75-99) mg/dL 01/06/17 01/06/17 01/06/17 Range/Units 01:18 05:55 05:55 WBC 13.4 H (3.8-10.6) k/uL MCV 100.2 H D (80.0-100.0) fL MCHC 30.7 L (31.0-37.0) g/dL Neutrophils # 12.3 H (1.3-7.7) k/uL Lymphocytes # 0.6 L (1.0-4.8) k/uL Sodium 136 L (137-145) mmol/L Potassium 6.5 H* (3.5-5.1) mmol/L BUN 54 H (9-20) mg/dL Creatinine 1.39 H (0.66-1.25) mg/dL Glucose 179 H (74-99) mg/dL POC Glucose (mg/dL) 124 H (75-99) mg/dL 01/06/17 Range/Units 06:12 WBC (3.8-10.6) k/uL MCV (80.0-100.0) fL MCHC (31.0-37.0) g/dL Neutrophils # (1.3-7.7) k/uL Lymphocytes # (1.0-4.8) k/uL Sodium (137-145) mmol/L Potassium (3.5-5.1) mmol/L BUN (9-20) mg/dL Creatinine (0.66-1.25) mg/dL Glucose (74-99) mg/dL POC Glucose (mg/dL) 180 H (75-99) mg/dL Assessment and Plan Plan: 1 acute COPD exacerbation with secondary shortness of breath 2 acute muscular skeletal chest wall pain secondary to aggressive cough and. CAT scan of the chest shows evidence of any rib fractures or pulmonary embolism. 3 chronic hypercapnic respiratory failure with acute respiratory acidosis based on the blood gases 4 morbid obesity 5 obstructive sleep apnea maintained on a BiPAP pressure of 18/10 cm of water 6 hypertension 7 diabetes mellitus 8 renal failure, chronic creatinine is at 1.39 9 remote history of gallstone pancreatitis complicated by sepsis and prolonged ventilator dependent respiratory failure. 10 acute hyperkalemia with acute renal failure, patient should have Kayexalate to treat his hyperkalemia, and we should have seek a nephrology consultation regarding his renal failure which may or may not be chronic. Recommendation: Continue present supportive care measures, I will initiate a nephrology consultation, and I will give the patient a dose of Kayexalate today. We'll continue to follow, pulmonary-chang patient seems to be on proper antibiotics and bronchodilators and steroids. Time with Patient: Less than 30
[2017-01-06] MEDS ORDERED: SODIUM POLYSTYRENE SULFONATE 15 GM/60 ML BOTTLE PO STA (11:58)
[2017-01-06 12:01] LABS: Glucose,Whole Blood 192 mg/dL (75-99)
[2017-01-06] MEDS: CARBAMIDE PEROXIDE 6.5% DROPS 15 ML BTL BOTH EARS SCH (16:03)
[2017-01-06 16:48] LABS: Glucose,Whole Blood 138 mg/dL (75-99)
[2017-01-06 20:25] LABS: Glucose,Whole Blood 207 mg/dL (75-99)
[2017-01-06] MEDS: ALBUTEROL NEBULIZED 2.5 MG/3 ML INHALATION PRN (20:28)
[2017-01-07] MEDS: HYDROcodone/APAP 10-325MG 1 EACH TAB PO PRN ×3 (04:41→20:42)
[2017-01-07] MEDS: CYCLOBENZAPRINE 10 MG TAB PO PRN ×2 (05:12→13:23)
[2017-01-07 06:05] LABS: Glucose,Whole Blood 177 mg/dL (75-99)
[2017-01-07 06:45] LABS: Basophils % (A) 0 %; CH 30.6; Eosinophils % (A) 0 %; HCT 45.4 % (39.0-53.0); HDW 2.67; Hypochromasia Slight; Luc # (Auto) 0.08; Luc % (Auto) 1; Lymphocytes # (A) 0.4 k/uL (1.0-4.8); Lymphocytes % (A) 4 %; MCH 30.6 pg (25.0-35.0); MCHC 30.9 g/dL (31.0-37.0); MCV 99.1 fL (80.0-100.0); Monocytes # (A) 0.4 k/uL (0-1.0); Monocytes % (A) 4 %; Neutrophils # (A) 8.7 k/uL (1.3-7.7); Neutrophils % (A) 90 %; RBC 4.58 m/uL (4.30-5.90); RDW 14.5 % (11.5-15.5); WBC 9.7 k/uL (3.8-10.6); WBC (Perox) 9.09
[2017-01-07 06:51] LABS: Anion Gap 8 mmol/L; Blood Urea Nitrogen 47 mg/dL (9-20); Calcium 8.3 mg/dL (8.4-10.2); Carbon Dioxide 30 mmol/L (22-30); Chloride 102 mmol/L (98-107); Glucose 159 mg/dL (74-99); Non-African American GFR(MDRD) 59 (>60 ml/min/1.73 sqM); Potassium 5.4 mmol/L (3.5-5.1); Sodium 140 mmol/L (137-145)
[2017-01-07] MEDS: TIOTROPIUM 18 MCG/PUFF INHALER INHALATION SCH (07:11)
[2017-01-07] MEDS: SYMBICORT 160-4.5 MCG INHALER INHALATION SCH ×2 (07:11→19:27)
[2017-01-07] MEDS: ALBUTEROL NEBULIZED 2.5 MG/3 ML INHALATION PRN (07:11)
[2017-01-07] MEDS: INSULIN LISPRO (humaLOG) 300 UNIT/3 ML VIAL SQ SCH ×4 (07:26→22:02)
[2017-01-07] MEDS: methylPREDNISolone SOD SUCCI 125 MG/2 ML VIAL IV SCH ×4 (07:27→23:17)
[2017-01-07] MEDS: INSULIN NPH/REG INSULIN 70/30 300 UNIT/3 ML VIAL SQ SCH ×2 (07:27→17:58)
--- NOTE | 2017-01-07 07:29 | PN ---
DATE OF SERVICE: 01/06/2017 INTERVAL HISTORY: Mr. Altamirano is a 71-year-old male with a past medical history of COPD, ( ) transferred from [facility] for difficulty in breathing. The patient had CT angio of the chest that was negative for PE or any rib fractures. The patient continues to have right sided chest pain below the rib cage, which is mostly musculoskeletal in nature. The patient's breathing has improved, but patient's potassium has been trending up slowly and is at 6.5 so he has been given Kayexalate and Nephrology has been consulted. REVIEW OF SYSTEMS: CONSTITUTIONAL: The patient denies having any fevers, chills or rigors. RESPIRATORY: Difficulty in breathing is better, but still complaining of pain in the right side of the chest below the rib cage. CARDIAC: No chest pain ( ). GI: No abdominal pain, nausea, vomiting or diarrhea. : No dysuria or hematuria. Patient says that he feels better with ( ). Patient's medications have been reviewed. On examination, patient's vital signs: Temperature 97.7, heart rate 94, respiratory rate 18, blood pressure 131/85, saturating at 91% on 5 L of nasal cannula. GENERAL EXAMINATION: The patient is morbidly obese, lying in bed, appears to be in no acute distress. HEAD: Atraumatic, normocephalic. Patient has a wart on the forehead region in the midline. Pupils are round and reactive to light. Conjunctivae are pink. Neck is short. HEART: S1 and S2 heard. LUNGS: Bilateral breath sounds in lung quiles. No wheezes or crackles. ABDOMEN: Soft, nontender. Organomegaly difficult to appreciate due to huge body habitus. EXAMINATION OF BOTH THE EARS: The patient has wax in both his ears, difficult to look at the tympanic membrane. EXTREMITIES: Positive for slight pitting edema bilaterally. Pulses are felt. MUSCULOSKELETAL: No joint swelling or deformity. SKIN: No rash. ORDER CLERK: Alert, awake and oriented x3. No focal neurological deficits. PSYCHIATRIC: Appropriate mood and affect. PATIENT'S LABS: White count is 13.4, hemoglobin 13.6, platelets of 191. Sodium is 136, potassium 6.52, chloride 103, bicarb 27. BUN 54, creatinine 1.39. ASSESSMENT AND PLAN: 1. Acute on chronic COPD exacerbation most likely secondary to acute tracheobronchitis. The patient has been started on ceftriaxone and Zithromax, which is being continued currently. We will continue with breathing treatments and IV steroids. 2. Hyperkalemia. Patient has been given a dose of Kayexalate. Denies having any chest pain or difficulty in breathing. 3. Right-sided chest wall pain secondary to musculoskeletal spasm symptoms are improving. 4. Acute on chronic hypercapnic respiratory failure. 5. Morbid obesity with body mass index of 43.9. 6. Hypertension. 7. Type 2 diabetes mellitus. 8. Elevated creatinine, unclear if it is acute or chronic. 9. Wart on the forehead. 10. Patient had a complicated hospital course in 2009 with gallstone pancreatitis which was complicated by VDRF and prolonged hospital stay. PLAN: The plan is to continue the patient on ceftriaxone, Zithromax, breathing treatments, and Solu-Medrol. Patient has been given Kayexalate for his hyperkalemia. Will continue with the rest his medication management. ( ).
[2017-01-07] MEDS: HYDROmorphone 1 MG/ML 1 ML SYRINGE IVP PRN ×3 (08:07→23:15)
[2017-01-07] MEDS: GABAPENTIN 300 MG CAP PO SCH ×3 (08:14→20:43)
[2017-01-07] MEDS: ENOXAPARIN 40 MG/0.4 ML SYRINGE SQ SCH (08:14)
[2017-01-07] MEDS: CARBAMIDE PEROXIDE 6.5% DROPS 15 ML BTL BOTH EARS SCH (08:14)
[2017-01-07] MEDS: amLODIPine 10 MG TAB PO SCH (08:14)
[2017-01-07] MEDS: AZITHROMYCIN 500 MG in SODIUM CHLORIDE 0.9% 250 ML IVPB SCH (09:39)
--- NOTE | 2017-01-07 11:25 | P.PN ---
Subjective Principal diagnosis: Right-sided chest pain, musculoskeletal, and acute COPD exacerbation This is a 71-year-old male patient, morbidly obese, known history of COPD and obstructive sleep apnea, who presented initially to [facility] because of increased cough. He started by having cold-like symptoms and symptoms of URI approximately 7-10 days ago and subsequently started having increased cough and congestion and he was coughing so hard that yesterday he pulled a anterior chest wall muscle and says that his been having excess amount of pain around the right lateral chest wall area. He denies having any fever or chills. He denies having any significant sputum production. No hemoptysis. No pleurisy. The chest wall was sore to touch and cough and. The patient is an ex-smoker. He quit smoking back in 2009. He is maintained on a combination of Spiriva and Symbicort. The patient has also been maintained on BiPAP at a pressure of 18/10 cm of water utilizing a full face mask. He is feeling slightly better compared to yesterday. He still short of breath with limited amount of activity and occasionally at rest. His blood gases that were forwarded from [facility] showed a component of hypercapnic respiratory failure acute on top of chronic with a pH of 7.34 with a pCO2 of 53 and pO2 of 71 and this was done while the patient on 43 of oxygen nasal cannula. Also, CT angios the chest was done that showed no evidence of any pulmonary embolism. There was some limited infiltration at the level of the lingula. No pleural effusion. Noted fracture. No pneumothorax. Blood work was also reviewed. The patient's creatinine was at 1.4. On 01/05/2017 the patient is being seen in follow-up. The patient is still is having some right-sided chest pain especially with coughing. His less shortness of breath. His cough is subsided. His also less bronchospastic and wheezy on today's evaluation. Potassium level is high at 6.5 and this is to be evaluated. Renal function is stable with a creatinine of 1.7. Meanwhile, the patient remains on a combination of Rocephin and Zithromax. He is on IV Solu- Medrol. He is also on DuoNeb nebulized treatments around the clock. Utilizing BiPAP overnight. Patient was reevaluated today on 01/06/2017, continues to have right sided musculoskeletal pain with certain movements and with deep coughing. Patient has chronic shortness of breath secondary to COPD, his cough seems to be less and less, patient is less bronchospastic and wheezy today. Labs are abnormal continues to have hyperkalemia, potassium is 6.5, his renal profile seems to be worsening, and I believe the patient should have a nephrology evaluation. CT of the chest was reviewed by Dr. Mcleod upon admission and there was no evidence of thromboembolic disease, and no evidence of rib fractures. He did recommend antibiotics for possible lingular infiltrate. The patient is seen again today 01/07/2017 in follow-up on the selective care unit. He is awake and alert in no acute distress. He states his breathing is nearly back to his baseline however he continues with this right upper quadrant lower rib pain. He states the pain is definitely worse with coughing. Less pain with deep breathing. The pain has not subsided and is actually a little worse today. He is maintaining good O2 saturations in the 90s on 5 L/m per nasal cannula. He is afebrile. No leukocytosis. Hemodynamically stable. Objective - Vital Signs Vital signs: Vital Signs Temp 96.4 F L 01/07/17 08:00 Pulse 104 H 01/07/17 08:00 Resp 20 01/07/17 08:00 BP 140/73 01/07/17 08:00 Pulse Ox 93 L 01/07/17 08:00 Intake & Output 01/06/17 01/07/17 01/07/17 18:59 06:59 18:59 Intake Total 580 20 180 Output Total 1550 1075 Balance -970 -1055 180 Weight 140.8 kg Intake: IV 20 0.9 20 Oral 580 180 Output: Urine 1550 1075 Other: Voiding Method Urinal Urinal - Exam Morbidly obese, calm and comfortable a mild degree of respiratory distress.Head exam was generally normal. There was no scleral icterus or corneal arcus. Mucous membranes were moist. Neck is short and supple and there is significant crowding of the posterior pharynx and the patient has a Mallampati class IV. Lung sounds are diminished bilaterally along with marked image breath sounds in the lung bases and diffuse expiratory wheezes throughout the lung quiles. Heart sounds are distant, positive S1-S2. No significant murmurs appreciated. Abdominal exam revealed normal bowel sounds. The abdomen was soft, non-tender, and without masses, organomegaly, or appreciable enlargement of the abdominal aorta. the patient is morbidly obese and orders cannot be accurately palpated.Examination of the extremities revealed easily palpable radial, femoral and pedal pulses. There was no cyanosis, clubbing or edema. - Labs CBC & Chem 7: 01/07/17 06:15 01/07/17 06:15 Labs: Abnormal Lab Results - Last 24 Hours (Table) 01/06/17 01/06/17 01/06/17 Range/Units 11:59 16:39 20:23 MCHC (31.0-37.0) g/dL Neutrophils # (1.3-7.7) k/uL Lymphocytes # (1.0-4.8) k/uL Potassium (3.5-5.1) mmol/L BUN (9-20) mg/dL Glucose (74-99) mg/dL POC Glucose (mg/dL) 192 H 138 H 207 H (75-99) mg/dL Calcium (8.4-10.2) mg/dL 01/07/17 01/07/17 01/07/17 Range/Units 06:04 06:15 06:15 MCHC 30.9 L (31.0-37.0) g/dL Neutrophils # 8.7 H (1.3-7.7) k/uL Lymphocytes # 0.4 L (1.0-4.8) k/uL Potassium 5.4 H (3.5-5.1) mmol/L BUN 47 H (9-20) mg/dL Glucose 159 H (74-99) mg/dL POC Glucose (mg/dL) 177 H (75-99) mg/dL Calcium 8.3 L (8.4-10.2) mg/dL Assessment and Plan Plan: Impression: 1 acute COPD exacerbation with secondary shortness of breath 2 acute muscular skeletal chest wall pain secondary to aggressive cough and. CAT scan of the chest shows evidence of any rib fractures or pulmonary embolism. 3 chronic hypercapnic respiratory failure with acute respiratory acidosis based on the blood gases 4 morbid obesity 5 obstructive sleep apnea maintained on a BiPAP pressure of 18/10 cm of water 6 hypertension 7 diabetes mellitus 8 renal failure, chronic creatinine is at 1.21 9 remote history of gallstone pancreatitis complicated by sepsis and prolonged ventilator dependent respiratory failure. Plan: The patient was seen and evaluated by Dr. Norris. We will repeat his chest x- ray and rib series on the right. We'll continue with his current medications including IV Solu-Medrol, bronchodilators, Symbicort, antibiotics in the form of Rocephin and azithromycin. He is on Lovenox for DVT prophylaxis, Protonix for GI prophylaxis. We will increase his activity as tolerated. We'll continue to follow.
[2017-01-07 11:29] LABS: Glucose,Whole Blood 223 mg/dL (75-99)
[2017-01-07] MEDS: VIT A,C & E-LUTEIN-MINERALS 1 EACH TAB PO SCH (12:38)
--- NOTE | 2017-01-07 15:15 | XR ---
EXAMINATION TYPE: XR ribs RT w pa chest xray DATE OF EXAM: 01/07/2017 COMPARISON: 01/03/2017 HISTORY: Right-sided chest pain TECHNIQUE: Frontal chest, 2 view right ribs FINDINGS: There may be a left lower lobe infiltrate. Clinical correlation is recommended. Heart size is normal. Pulmonary vasculature is normal No pneumothorax is evident. Degenerative are present chest. Some blunting of the right costophrenic a ngle is present. Correlate for atelectasis. Infiltrates. Be developing from prior exam IMPRESSION: 1. No acute rib changes. 2. Correlate for atelectasis the right costophrenic angle. 3. Left lower lobe infiltrate. Correlate for atelectasis and pneumonia
[2017-01-07] MEDS: IPRATROPIUM-ALBUTEROL 3 ML NEB INHALATION PRN ×2 (15:18→19:27)
[2017-01-07] MEDS: LIDOCAINE 5% PATCH TOPICAL SCH (15:21)
--- NOTE | 2017-01-07 15:35 | P.PN ---
Subjective 8-year-old gentleman with history of COPD objective sleep apnea morbid obesity comes to the hospital with complains of difficulty breathing 7-10 days prior to admission. Patient was noted to have a left lower lobe airspace disease consistent with pneumonia. Patient was noted to have a component hypercapnic respiratory failure was transferred from [facility] rate A CT angiogram was also done which did not reveal a pulmonary embolism Patient states that the his cough is slightly improved however states to have some pain in his right lower part of the chest. States that he heard a pop and is concerned about it. Cough is significantly improved. Is able to move air more appropriately. No fevers chills nausea vomiting or thrush reported at this time Objective - Vital Signs Vital signs: Vital Signs Temp 97.2 F L 01/07/17 12:00 Pulse 97 01/07/17 15:31 Resp 18 01/07/17 12:00 BP 156/81 01/07/17 12:00 Pulse Ox 91 L 01/07/17 12:00 Intake & Output 01/06/17 01/07/17 01/07/17 18:59 06:59 18:59 Intake Total 997 83 3814 Output Total 1550 1075 Balance -970 -1055 1102 Weight 140.8 kg Intake: IV 20 400 0.9 20 400 Intake, IV Titration 300 Amount Azithromycin 500 mg In 250 Sodium Chloride 0.9% 250 ml @ 125 mls/hr IVPB DAILY ZAYRA Rx#:[id number] cefTRIAXone 1,000 mg In 50 Sodium Chloride 0.9% 50 ml @ 100 mls/hr IVPB Q24HR ZAYRA Rx#:[id number] Oral 580 402 Output: Urine 1550 1075 Other: Voiding Method Urinal Urinal # Bowel Movements 0 - Exam Physical exam obese gentleman who does not appear to be in distress Neck is supple no JVD Lungs diminished breath sounds no significant wheezing rhonchi or crackles appreciated Heart S1-S2 heard regular rate and rhythm no murmurs appreciated Abdomen is soft nontender no organomegaly bowel sounds are intact Neurologically cranial nerves II-12 grossly intact no focal motor or sensory deficits noted Skin no abnormalities appreciated - Labs CBC & Chem 7: 01/07/17 06:15 01/07/17 06:15 Labs: Abnormal Lab Results - Last 24 Hours (Table) 06/12/17 06/12/17 06/13/17 Range/Units 16:39 20:23 06:04 MCHC (31.0-37.0) g/dL Neutrophils # (1.3-7.7) k/uL Lymphocytes # (1.0-4.8) k/uL Potassium (3.5-5.1) mmol/L BUN (9-20) mg/dL Glucose (74-99) mg/dL POC Glucose (mg/dL) 138 H 207 H 177 H (75-99) mg/dL Calcium (8.4-10.2) mg/dL 01/07/17 01/07/17 01/07/17 Range/Units 06:15 06:15 11:28 MCHC 30.9 L (31.0-37.0) g/dL Neutrophils # 8.7 H (1.3-7.7) k/uL Lymphocytes # 0.4 L (1.0-4.8) k/uL Potassium 5.4 H (3.5-5.1) mmol/L BUN 47 H (9-20) mg/dL Glucose 159 H (74-99) mg/dL POC Glucose (mg/dL) 223 H (75-99) mg/dL Calcium 8.3 L (8.4-10.2) mg/dL Assessment and Plan Plan: #1 acute on chronic hypoxic hypercapnic respiratory failure secondary to an acute exacerbation of COPD with underlying component of left lower lobe pneumonia #2 obesity #3 objective sleep apnea currently maintained on a BiPAP #4 diabetes mellitus #5 CK D stage III with a baseline creatinine 1.21 #6 hypertension Plan Continue ongoing care DVT prophylaxis patient's breathing is improved we'll likely monitor the patient another 24 hours thereafter could be discharged home on an oral steroid taper and antibiotics encourage activity A rib x-ray was done which was also negative
[2017-01-07 17:17] LABS: Glucose,Whole Blood 213 mg/dL (75-99)
--- NOTE | 2017-01-07 18:38 | CONS ---
DATE OF CONSULTATION: REASON FOR CONSULTATION: Hyperkalemia. HISTORY OF PRESENT ILLNESS: The patient is a 71 -year-old male who was admitted to the hospital with complaints of shortness of breath. He was actually transferred from [facility] where he was diagnosed with COPD exacerbation and pneumonia. The patient was also found to be hyperkalemic with a potassium of 6.5. He has received Kayexelate. His potassium is down to 5.4 now. Serum creatinine initially was 1.4. It is now down to 1.2. The patient was maintained on mary inhibitors prior to admission. He is currently not on any IV fluids. The patient has had good urine output and he had about 2.6 L for output for 24 hours. PAST MEDICAL HISTORY: Significant for hypertension, Type 2 diabetes mellitus, COPD, history of gallstone pancreatitis, sleep apnea, peripheral neuropathy. PAST SURGICAL HISTORY: Cholecystectomy, previous history of tracheostomy for vent dependent respiratory failure. SOCIAL HISTORY: The patient is a former smoker. No history of drug abuse or alcohol abuse. MEDICATIONS: At home prior to admission include: 1. Albuterol. 2. Symbicort inhaler. 3. Neurontin. 4. [place]. 5. Insulin. 6. Prilosec. 7. Zestril. 8. Spiriva. 9. Amlodipine. ALLERGIES: No known drug allergies. REVIEW OF SYSTEMS: As per history of present illness. Other systems negative. PHYSICAL EXAMINATION: The patient is currently comfortable, awake. He is not in any acute distress. Blood pressure was 130/76. Heart rate of 79 per minute. The patient is afebrile. Examination of the heart, S1, S2. Examination of the lungs bilateral breath sounds are heard. Examination of the abdomen is soft, nontender. Examination of the lower extremities shows no significant edema. Central nervous system exam is grossly intact. The patient is moving all four extremities. Labs show sodium 140, potassium 5.4, chloride 102, BUN 47, serum creatinine 1.2, calcium 8.3, UA is not available. Chest x-ray shows left lower lobe infiltrate. ASSESSMENT: 1. Acute kidney injury, most likely prerenal, seems to have improved. Currently the patient is not on IV fluids. His mary inhibitors are on hold. Serum creatinine is down from 1.4 to 1.2 mg/dL. No nephrotoxic agents on board. The patient did state that he has had some degree of chronic kidney disease previously after his hospitalization for pancreatitis but has not really followed up as outpatient for chronic kidney disease. 2. Chronic kidney disease with previous creatinine not available at this time from prior to this admission. We will need to check urinalysis to rule out underlying proteinuria. 3. Hyperkalemia associated with acute kidney injury, use of mary inhibitors. The patient denied any nonsteroidal anti-inflammatory agents use prior to admission. There is no ongoing active gastrointestinal bleed. His mary inhibitors are on hold. The patient has received Kayexelate and serum potassium is down to 5.4. I have advised him to be maintained on a low potassium diet as well for now. I will hold off on the Kayexelate and we can maintain the patient on low dose loop diuretics which will help with the hyperkalemia. 4. Severe chronic obstructive pulmonary disease. 5. History of pancreatitis with sepsis and vent dependent respiratory failure. 6. Right upper quadrant pain from coughing, no evidence of rib fractures on the x-ray. PLAN: Maintain the patient on low potassium diet. Start loop diuretics. Low dose. We can add p.o. Repeat labs in the a.m. Continue to hold off mary inhibitors for now. Also check urinalysis. Check ultrasound of the kidneys if not down. Thank you for this consultation, we will continue to follow the patient with you during his hospitalization.
[2017-01-07] MEDS: DOCUSATE 100 MG CAP PO SCH (20:39)
--- NOTE | 2017-01-07 20:39 | US ---
EXAMINATION TYPE: US kidneys/renal and bladder DATE OF EXAM: 01/07/2017 COMPARISON: NONE CLINICAL HISTORY: renal failure. EXAM MEASUREMENTS: Right Kidney: 12.8 x 6.3 x 6.7 cm Left Kidney: 12.6 x 6.1 x 5.6 cm Right Kidney: No hydronephrosis or masses seen Left Kidney: Cyst visualized mid pole measuring 0.7 cm Bladder: wnl as visualized, not fully distended Bilateral Jets seen: Yes IMPRESSION: There is a small exophytic left renal cortical cyst. No evidence of renal stone or obstruction. No re nal atrophy seen.
[2017-01-07 21:03] LABS: Glucose,Whole Blood 349 mg/dL (75-99)
[2017-01-08 06:04] LABS: Glucose,Whole Blood 295 mg/dL (75-99)
[2017-01-08] MEDS: HYDROmorphone 1 MG/ML 1 ML SYRINGE IVP PRN ×2 (06:05→11:39)
[2017-01-08] MEDS: methylPREDNISolone SOD SUCCI 125 MG/2 ML VIAL IV SCH (06:06)
[2017-01-08] MEDS: INSULIN NPH/REG INSULIN 70/30 300 UNIT/3 ML VIAL SQ SCH (06:37)
[2017-01-08] MEDS: INSULIN LISPRO (humaLOG) 300 UNIT/3 ML VIAL SQ SCH ×2 (06:38→11:43)
[2017-01-08 07:42] VITALS: RESP 19; TEMP 97
[2017-01-08] MEDS: LIDOCAINE 5% PATCH TOPICAL SCH (07:43)
[2017-01-08] MEDS: amLODIPine 10 MG TAB PO SCH (07:44)
[2017-01-08] MEDS: ENOXAPARIN 40 MG/0.4 ML SYRINGE SQ SCH (07:44)
[2017-01-08] MEDS: CARBAMIDE PEROXIDE 6.5% DROPS 15 ML BTL BOTH EARS SCH (07:44)
[2017-01-08] MEDS: GABAPENTIN 300 MG CAP PO SCH (07:45)
[2017-01-08] MEDS: DOCUSATE 100 MG CAP PO SCH (07:45)
[2017-01-08] MEDS: ALBUTEROL NEBULIZED 2.5 MG/3 ML INHALATION PRN ×2 (08:05→11:32)
[2017-01-08] MEDS: SYMBICORT 160-4.5 MCG INHALER INHALATION SCH (08:05)
[2017-01-08] MEDS: TIOTROPIUM 18 MCG/PUFF INHALER INHALATION SCH (08:05)
[2017-01-08] MEDS ORDERED: FUROSEMIDE 40 MG TAB PO SCH (09:00)
[2017-01-08 09:47] LABS: Anion Gap 8 mmol/L; Blood Urea Nitrogen 45 mg/dL (9-20); Calcium 8.2 mg/dL (8.4-10.2); Carbon Dioxide 29 mmol/L (22-30); Chloride 102 mmol/L (98-107); Glucose 239 mg/dL (74-99); Non-African American GFR(MDRD) 55 (>60 ml/min/1.73 sqM); Potassium 5.6 mmol/L (3.5-5.1); Sodium 139 mmol/L (137-145)
[2017-01-08] MEDS: AZITHROMYCIN 500 MG in SODIUM CHLORIDE 0.9% 250 ML IVPB SCH (10:07)
--- NOTE | 2017-01-08 10:24 | P.PN ---
Subjective Principal diagnosis: Right-sided chest pain, musculoskeletal, and acute COPD exacerbation This is a 71-year-old male patient, morbidly obese, known history of COPD and obstructive sleep apnea, who presented initially to [facility] because of increased cough. He started by having cold-like symptoms and symptoms of URI approximately 7-10 days ago and subsequently started having increased cough and congestion and he was coughing so hard that yesterday he pulled a anterior chest wall muscle and says that his been having excess amount of pain around the right lateral chest wall area. He denies having any fever or chills. He denies having any significant sputum production. No hemoptysis. No pleurisy. The chest wall was sore to touch and cough and. The patient is an ex-smoker. He quit smoking back in 2009. He is maintained on a combination of Spiriva and Symbicort. The patient has also been maintained on BiPAP at a pressure of 18/10 cm of water utilizing a full face mask. He is feeling slightly better compared to yesterday. He still short of breath with limited amount of activity and occasionally at rest. His blood gases that were forwarded from [facility] showed a component of hypercapnic respiratory failure acute on top of chronic with a pH of 7.34 with a pCO2 of 53 and pO2 of 71 and this was done while the patient on 43 of oxygen nasal cannula. Also, CT angios the chest was done that showed no evidence of any pulmonary embolism. There was some limited infiltration at the level of the lingula. No pleural effusion. Noted fracture. No pneumothorax. Blood work was also reviewed. The patient's creatinine was at 1.4. On 01/05/2017 the patient is being seen in follow-up. The patient is still is having some right-sided chest pain especially with coughing. His less shortness of breath. His cough is subsided. His also less bronchospastic and wheezy on today's evaluation. Potassium level is high at 6.5 and this is to be evaluated. Renal function is stable with a creatinine of 1.7. Meanwhile, the patient remains on a combination of Rocephin and Zithromax. He is on IV Solu- Medrol. He is also on DuoNeb nebulized treatments around the clock. Utilizing BiPAP overnight. Patient was reevaluated today on 01/06/2017, continues to have right sided musculoskeletal pain with certain movements and with deep coughing. Patient has chronic shortness of breath secondary to COPD, his cough seems to be less and less, patient is less bronchospastic and wheezy today. Labs are abnormal continues to have hyperkalemia, potassium is 6.5, his renal profile seems to be worsening, and I believe the patient should have a nephrology evaluation. CT of the chest was reviewed by Dr. Mcleod upon admission and there was no evidence of thromboembolic disease, and no evidence of rib fractures. He did recommend antibiotics for possible lingular infiltrate. The patient is seen again today 01/07/2017 in follow-up on the selective care unit. He is awake and alert in no acute distress. He states his breathing is nearly back to his baseline however he continues with this right upper quadrant lower rib pain. He states the pain is definitely worse with coughing. Less pain with deep breathing. The pain has not subsided and is actually a little worse today. He is maintaining good O2 saturations in the 90s on 5 L/m per nasal cannula. He is afebrile. No leukocytosis. Hemodynamically stable. Seen again today 01/08/2017 in follow-up on the selective care unit. He continues to have some right lower chest/upper quadrant discomfort but it is better today as compared to yesterday. A Lidoderm patch has been applied. X- ray revealed no acute rib changes. There is some atelectasis at the right costophrenic angle. Minimal left lower lung infiltrate. Still on 5 L/m per nasal cannula to maintain O2 saturations in the 90s. He's been afebrile. Remains on ceftriaxone and azithromycin. Hemodynamically stable. Ultrasound of the kidneys/renal and bladder revealed a small exophytic left renal cortical cyst. No evidence of renal stone or obstructions. No renal atrophy noted. Creatinine 1.30. Potassium 5.6. Objective - Vital Signs Vital signs: Vital Signs Temp 97 F L 01/08/17 07:41 Pulse 90 01/08/17 08:15 Resp 19 01/08/17 07:56 BP 116/54 01/08/17 07:41 Pulse Ox 94 L 01/08/17 07:41 Intake & Output 01/07/17 01/08/17 01/08/17 18:59 06:59 18:59 Intake Total 1102 600 400 Output Total 600 Balance 1102 0 400 Weight 145.5 kg Intake: IV 400 600 0.9 400 600 Intake, IV Titration 300 Amount Azithromycin 500 mg In 250 Sodium Chloride 0.9% 250 ml @ 125 mls/hr IVPB DAILY ZAYRA Rx#:[id number] cefTRIAXone 1,000 mg In 50 Sodium Chloride 0.9% 50 ml @ 100 mls/hr IVPB Q24HR ZAYRA Rx#:[id number] Oral 402 400 Output: Urine 600 Other: Voiding Method Urinal Urinal # Bowel Movements 0 - Exam Morbidly obese, calm and comfortable a mild degree of respiratory distress.Head exam was generally normal. There was no scleral icterus or corneal arcus. Mucous membranes were moist. Neck is short and supple and there is significant crowding of the posterior pharynx and the patient has a Mallampati class IV. Lung sounds are diminished bilaterally along with marked image breath sounds in the lung bases and expiratory wheezes throughout the lung quiles. Heart sounds are distant, positive S1-S2. No significant murmurs appreciated. Abdominal exam revealed normal bowel sounds. The abdomen was soft, non-tender, and without masses, organomegaly, or appreciable enlargement of the abdominal aorta. the patient is morbidly obese and orders cannot be accurately palpated.Examination of the extremities revealed easily palpable radial, femoral and pedal pulses. There was no cyanosis, clubbing or edema. - Labs CBC & Chem 7: 01/07/17 06:15 01/08/17 09:17 Labs: Abnormal Lab Results - Last 24 Hours (Table) 01/07/17 01/07/17 01/07/17 Range/Units 11:28 17:11 21:00 Potassium (3.5-5.1) mmol/L BUN (9-20) mg/dL Creatinine (0.66-1.25) mg/dL Glucose (74-99) mg/dL POC Glucose (mg/dL) 223 H 213 H 349 H (75-99) mg/dL Calcium (8.4-10.2) mg/dL 01/08/17 01/08/17 Range/Units 06:02 09:17 Potassium 5.6 H (3.5-5.1) mmol/L BUN 45 H (9-20) mg/dL Creatinine 1.30 H (0.66-1.25) mg/dL Glucose 239 H (74-99) mg/dL POC Glucose (mg/dL) 295 H (75-99) mg/dL Calcium 8.2 L (8.4-10.2) mg/dL Assessment and Plan Plan: Impression: 1 acute COPD exacerbation with secondary shortness of breath 2 acute muscular skeletal chest wall pain secondary to aggressive cough and. CAT scan of the chest does not show evidence of any rib fractures or pulmonary embolism. Improved today on a Lidoderm patch. 3 chronic hypercapnic respiratory failure with acute respiratory acidosis based on the blood gases 4 morbid obesity 5 obstructive sleep apnea maintained on a BiPAP pressure of 18/10 cm of water 6 hypertension 7 diabetes mellitus with steroid-induced hyperglycemia. 8 renal failure, chronic creatinine is at 1.30 9 remote history of gallstone pancreatitis complicated by sepsis and prolonged ventilator dependent respiratory failure. Plan: The patient was seen and evaluated by Dr. Martinez. His chest x-ray and labs were reviewed. We'll continue with his current medications including bronchodilators, Symbicort, antibiotics in the form of Rocephin and azithromycin. We will taper his steroids. He is on Lovenox for DVT prophylaxis , Protonix for GI prophylaxis. We will increase his activity as tolerated. We' ll continue to follow. He is anxious to go home.
[2017-01-08 11:35] VITALS: PULSE 84
[2017-01-08] MEDS: VIT A,C & E-LUTEIN-MINERALS 1 EACH TAB PO SCH (11:40)
[2017-01-08 11:46] VITALS: BP 128/67
[2017-01-08 11:52] LABS: Glucose,Whole Blood 146 mg/dL (75-99)
[2017-01-08] MEDS ORDERED: SODIUM POLYSTYRENE SULFONATE 15 GM/60 ML BOTTLE PO STA (12:39)
--- NOTE | 2017-01-08 12:52 | P.DS ---
Providers Date of admission: 01/04/17 00:02 Attending physician: Bhakti Be Consults: 01/04/17 09:27 Consult Physician Routine Consulting Provider: Marcelle Mcleod Consult Reason/Comments: Pneumonia Do you want consulting provider notified?: Yes 01/06/17 11:57 Consult Physician Routine Consulting Provider: Anya Varela Consult Reason/Comments: renal failure and hyperkalemia Do you want consulting provider notified?: Yes Primary care physician: Physician Nonstaff Hospital Course: Hospital course 71-year-old gentleman with history of COPD objective sleep apnea morbid obesity comes to the hospital with complains of difficulty breathing 7-10 days prior to admission. Patient was noted to have a left lower lobe airspace disease consistent with pneumonia. Patient was noted to have a component hypercapnic respiratory failure was transferred from [facility] rate A CT angiogram was also done which did not reveal a pulmonary embolism Patient states that the his cough is slightly improved however states to have some pain in his right lower part of the chest. States that he heard a pop and is concerned about it. Cough is significantly improved. Is able to move air more appropriately. No fevers chills nausea vomiting or thrush reported at this time 01/08/2017 States to be improved significantly states that the pain is controlled at this time Denies having a significant amount of cough that is productive in nature is able to family without much breathing difficulty as well no fevers chills nausea vomiting or diarrhea is reported on the day of discharge - Exam Physical exam obese gentleman who does not appear to be in distress Neck is supple no JVD Lungs diminished breath sounds no significant wheezing rhonchi or crackles appreciated Heart S1-S2 heard regular rate and rhythm no murmurs appreciated Abdomen is soft nontender no organomegaly bowel sounds are intact Neurologically cranial nerves II-12 grossly intact no focal motor or sensory deficits noted Skin no abnormalities appreciated Assessment and Plan Plan: #1 acute on chronic hypoxic hypercapnic respiratory failure secondary to an acute exacerbation of COPD with underlying component of left lower lobe pneumonia #2 obesity #3 objective sleep apnea currently maintained on a BiPAP #4 diabetes mellitus #5 CK D stage III with a baseline creatinine 1.21 #6 hypertension discharged home on supplemental oxygen. Instructions will be given to the patient patient is hypoxic at rest is currently requiring 3-4 L at rest a get up and go test including pulse oximetry at rest and ambulation will be documented Breathing is improved is able to ambulate about 50 feet Plan - Discharge Summary New Discharge Prescriptions: New Cefuroxime [Ceftin] 250 mg PO BID #20 tablet Furosemide [Lasix] 40 mg PO DAILY #30 tab predniSONE 0 mg PO DAILY #30 tab Continue Albuterol Inhaler [Ventolin Hfa Inhaler] 1 - 2 puff INHALATION RT-QID PRN PRN Reason: Dyspnea amLODIPine [Norvasc] 10 mg PO DAILY Tiotropium 18 Mcg/Puff [Spiriva] 1 cap INHALATION RT-DAILY Lisinopril [Zestril] 2.5 mg PO DAILY Gabapentin [Neurontin] 600 mg PO TID Insulin NPH Hum/Reg Insulin Hm [Humulin 70-30 Vial] 60 unit SQ AC-BID Budesonide-Formot 160-4.5 Mcg [Symbicort 160-4.5 Mcg Inhaler] 2 puff INHALATION RT-BID Hydrocodone/Acetaminophen [[place] 10-325 Tablet] 1 tab PO TID PRN PRN Reason: Pain Omeprazole [PriLOSEC] 20 mg PO DAILY PRN PRN Reason: Indigestion Vits A,C,E/Lutein/Minerals [Ocuvite with Lutein Tablet] 1 tab PO DAILY Discharge Medication List Albuterol Inhaler [Ventolin Hfa Inhaler] 1 - 2 puff INHALATION RT-QID PRN [History] Budesonide-Formot 160-4.5 Mcg [Symbicort 160-4.5 Mcg Inhaler] 2 puff INHALATION RT-BID 01/03/17 [History] Gabapentin [Neurontin] 600 mg PO TID 01/03/17 [History] Hydrocodone/Acetaminophen [[place] 10-325 Tablet] 1 tab PO TID PRN 01/03/17 [ History] Insulin NPH Hum/Reg Insulin Hm [Humulin 70-30 Vial] 60 unit SQ AC-BID 01/03/17 [ History] Lisinopril [Zestril] 2.5 mg PO DAILY 01/03/17 [History] Omeprazole [PriLOSEC] 20 mg PO DAILY PRN 01/03/17 [History] Tiotropium 18 Mcg/Puff [Spiriva] 1 cap INHALATION RT-DAILY 01/03/17 [History] Vits A,C,E/Lutein/Minerals [Ocuvite with Lutein Tablet] 1 tab PO DAILY 01/03/17 [History] amLODIPine [Norvasc] 10 mg PO DAILY 01/03/17 [History] Cefuroxime [Ceftin] 250 mg PO BID #20 tablet 01/08/17 [Rx] Furosemide [Lasix] 40 mg PO DAILY #30 tab 01/08/17 [Rx] predniSONE 0 mg PO DAILY #30 tab 01/08/17 [Rx] Follow up Appointment(s)/Referral(s): Sergio Martinez MD [STAFF PHYSICIAN] - 2 Weeks Nonstaff,Physician [Primary Care Provider] - 1-2 days Ambulatory/Diagnostic Orders: Comprehensive Metabolic Panel [LAB.AMB] Time Frame: 1 Week, Location: Determined By Patient Discharge Disposition: HOME SELF-CARE
--- NOTE | 2017-01-08 13:03 | PN ---
Patient is seen for followup for acute kidney injury. I did review his previous labs. It appears his creatinine has been at 1.4 previously prior to admission as well. He states overall he is feeling better. His pain on the right side of the abdomen has improved. He remains off of GREG inhibitors. Serum creatinine at about 1.3 mg/dL, potassium which was initially high at 6.5 is now at 5.6 mEq/L. Patient did get IV fluids and on initial admission, he is currently not in any fluids. On examination, blood pressure is 128/57, heart rate 84 per minute. He is afebrile. Examination of the heart, S1 and S2. Examination of the lungs, bilateral breath sounds are heard. Abdomen is soft, nontender, morbidly obese. Examination of lower extremities shows no significant edema. [employer] exam is grossly intact. Labs show sodium of 139, potassium 5.6, chloride 102, BUN 45, serum creatinine 1.3 mg/dL. ASSESSMENT: 1. Acute kidney injury, likely prerenal. Continue to maintain patient off of GREG inhibitors for now, given his borderline blood pressures as well as hyperkalemia. His previous creatinine has been at 1.4 from review of his labs prior to admission to the hospital. 2. Hyperkalemia associated with acute kidney injury and use of GREG inhibitors, currently slightly improved; however, potassium is back up at 5.6 today. Patient is off of GREG inhibitors. I started him on low-dose loop diuretics, which we can continue and I will repeat another dose of Kayexalate today. He should continue to be maintained on low-potassium diet. 3. Hypertension, controlled. May continue with the Norvasc. 4. Chronic kidney disease secondary to nephrosclerosis, most likely a urinalysis was ordered. I do not see it back yet. Will need to rule out underlying proteinuria. PLAN: Continue off of GREG inhibitors, repeat a dose of Kayexalate today, maintain patient on low potassium diet. Once patient is discharged, he will need to follow up as outpatient for CKD management. We also need to obtain the urinalysis that was ordered yesterday.
[2017-01-09] MEDS ORDERED: predniSONE 20 MG TAB PO SCH (09:00)
== END 2017-01-08 16:21 | disposition home or self-care (01) | DRG 190 ==
LOC: EC 23:02 → 6SEL 01-04 00:02
PROVIDERS: ADMIT Hospitalist; ATTEND Hospitalist
DX: J44.0 Chronic obstructive pulmonary disease with (acute) lower respiratory infection (principal); J18.9 Pneumonia, unspecified organism; J96.11 Chronic respiratory failure with hypoxia; Z68.42 Body mass index [BMI] 45.0-49.9, adult; J98.11 Atelectasis; E11.22 Type 2 diabetes mellitus with diabetic chronic kidney disease; E11.65 Type 2 diabetes mellitus with hyperglycemia; E87.5 Hyperkalemia; Z93.0 Tracheostomy status; E66.01 Morbid (severe) obesity due to excess calories; I12.9 Hypertensive chronic kidney disease with stage 1 through stage 4 chronic kidney disease, or unspecified chronic kidney disease; N18.9 Chronic kidney disease, unspecified; G47.33 Obstructive sleep apnea (adult) (pediatric); J44.1 Chronic obstructive pulmonary disease with (acute) exacerbation; T38.0X5A Adverse effect of glucocorticoids and synthetic analogues, initial encounter; Z87.891 Personal history of nicotine dependence; Z90.49 Acquired absence of other specified parts of digestive tract; Z79.51 Long term (current) use of inhaled steroids; Z79.4 Long term (current) use of insulin; Z79.899 Other long term (current) drug therapy; G89.29 Other chronic pain; M54.9 Dorsalgia, unspecified; Z80.1 Family history of malignant neoplasm of trachea, bronchus and lung
CPT/HCPCS: 36415; 76770; 80048; 83036; 84484; 85025; 93005; 94640; 94660; 94760; 96374; 96375; 99285